=== PATIENT | female | born 1980 | race Caucasian/White ===

== ENCOUNTER 2018-05-18 02:51 | Emergency (ER) | payer MEDICAID, OTHER ==
[~2018-05-18] VITALS: Ht 170.2 cm; Wt 90.7 kg
--- NOTE | 2018-05-18 02:57 | ED Fall/Injury ---
General Chief Complaint: Trauma-Non Activation Stated Complaint: FALL History of Present Illness Date Seen by Provider: May 18, 2018 Time Seen by Provider: 02:42 Occurred: just prior to arrival Severity: moderate Injuries/Pain Location: lower extremity Context: fainted, lightheaded, slipped Loss of Consciousness: no loss of consciousness Modifying Factors: Improves With Movement Associated Symptoms (Fall): Denies Symptoms 36-year-old female presents by EMS after a mechanical fall injuring the right foot and left lateral ankle. Denies any other injuries. Has constant nonradiating sore moderate severity pain worse with movement or direct palpation. No weakness numbness or tingling. No other injuries. Allergies and Home Medications Allergies Coded Allergies: No Known Drug Allergies (Unverified , 05/18/18) Home Medications Hydrocodone Bit/Acetaminophen 1 Tab Tab, 1-2 EACH PO Q6H PRN for PAIN-MODERATE Prescribed by: ANKIT CARTER on 05/18/18 0535 Patient Home Medication List Home Medication List Reviewed: Yes Review of Systems Review of Systems Constitutional: no symptoms reported Eyes: No Symptoms Reported Ears, Nose, Mouth, Throat: no symptoms reported Respiratory: no symptoms reported Cardiovascular: no symptoms reported Gastrointestinal: no symptoms reported Genitourinary: no symptoms reported : No Musculoskeletal: see HPI Skin: no symptoms reported Psychiatric/Neurological: No Symptoms Reported All Other Systems Reviewed Negative Unless Noted: Yes Physical Exam Vital Signs Vital Signs - First Documented 05/18/18 05/18/18 02:53 07:38 Temp 97.4 Pulse 100 Resp 20 B/P (MAP) 95/65 (75) Pulse Ox 98 O2 Delivery Room Air Capillary Refill : Height, Weight, BMI Height: '" Weight: lbs. oz. kg; BMI Method: General Appearance: no apparent distress HEENT: normal ENT inspection Neck: supple Cardiovascular: normal peripheral pulses, regular rate, rhythm Respiratory: lungs clear Gastrointestinal: non tender, soft Extremities: other (mild swelling and ecchymosis over the right dorsal mid foot , mild tenderness over the left posterior lateral malleolus) Neurologic/Psychiatric: no motor/sensory deficits, alert, oriented x 3 Progress/Results/Core Measures Results/Orders My Orders Orders - ANKIT CARTER DO Foot 2 View Right (05/18/18 02:58) Ankle 3 View Left (05/18/18 02:58) Oxycodone Immediate Rel Tablet (Oxyir Ta (05/18/18 02:59) Ketorolac Injection (Toradol Injection) (05/18/18 04:50) Ketorolac Injection (Toradol Injection) (05/18/18 05:25) Vital Signs/I&O 05/18/18 05/18/18 05/18/18 02:53 02:56 07:38 Temp 97.4 97.4 97.4 Pulse 100 100 69 Resp 20 20 20 B/P (MAP) 95/65 (75) 95/65 (75) 122/85 (97) Pulse Ox 98 98 99 O2 Delivery Room Air Progress Progress Note : Progress Note My review of patient's x-rays reveal a left distal fibular avulsion fracture and a possible right tarsal fracture. I applied a plaster wide posterior ankle mold for the left ankle and we tried a postop boot on the right side however patient is unable to bear weight on either side. We do not have wheelchairs in this facility, I am notified by staff that in the morning there is a medical supply company that should be able to supply a wheelchair. Patient also thinks that she might be able to get one from her family member. She does have several family members that can help her at home. Once we get a wheelchair we can discharge the patient with a prescription for analgesics and referral to orthopedics. She has no recent controlled substance prescriptions in [facility] website. Discussed risks, benefits, alternatives of opioid prescribing the patient. Care signed out to oncoming provider at 6am. Departure Impression Primary Impression: Closed left fibular fracture Additional Impression: Fracture of tarsal bone of right foot Disposition: 01 HOME, SELF-CARE Condition: Stable Departure-Patient Inst. Referrals: OLINDA MAYS MD Patient Instructions: Foot Fracture (DC) Scripts Hydrocodone Bit/Acetaminophen (Hydrocodone/Acetaminophen 5/325mg Tablet) 1 Tab Tab 1-2 EACH PO Q6H PRN for PAIN-MODERATE MDD 10, #20 TAB 0 Refills Prov: ANKIT CARTER DO 05/18/18 ANKIT CARTER DO May 18, 2018 02:57
--- OUTSIDE RECORDS SUMMARY | 2018-05-18 02:59 | XMS REPORT ---
Author Author MAYELA MENJIVAR Organization [facility] Address [address] [place] [address] Care Team Providers Care Residence Life Director Name Role Phone TIARAERENA Unavailable PROBLEMS Unknown Problems ALLERGIES No Known Allergies ENCOUNTERS Encounter Location Date Diagnosis [facility] [address] [facility] [id number] [place] [id number] May, Encounter for dental examination Z01.20 [facility] [id number] [place] [phone] Jun, 2014 [facility] [id number] [place] [phone] Jun, [facility] [id number] [place] [phone] Feb, [facility] [id number] [place] [phone] Feb, IMMUNIZATIONS No Known Immunizations SOCIAL HISTORY Never Assessed REASON FOR VISIT Prophy/RINA PLAN OF CARE Activity Details Follow Up First Available Reason:Restorative VITAL SIGNS Blood pressure systolic 108 mmHg 2017-05-30 Blood pressure diastolic 68 mmHg 2017-05-30 MEDICATIONS Medication Instructions Dosage Frequency Start Date End Date Duration Status Harrison 5-325 mg take 1 tablet by Oral route every 6 hours as needed for pain Feb, Not-Taking RESULTS No Results PROCEDURES Procedure Date Ordered Result Body Site COMP ORAL EVALUATION - NEW/EST PT May 30, 2017 INTRAORL-PERIAPICAL 1 FILM 12077 May 30, 2017 PANORAMIC FILM SEE ALSO CODE 06936 May 30, 2017 BITEWINGS - FOUR FILMS May 30, 2017 PROPHYLAXIS - ADULT May 30, 2017 INTRAORL-PERIAPICAL EA ADD FILM May 30, 2017 INTRAORL-PERIAPICAL EA ADD FILM May 30, 2017 INTRAORL-PERIAPICAL EA ADD FILM May 30, 2017 INTRAORL-PERIAPICAL EA ADD FILM May 30, 2017 INSTRUCTIONS MEDICATIONS ADMINISTERED No Known Medications MEDICAL (GENERAL) HISTORY Type Description Date Surgical History c-sections Surgical History Gall Lbadder 2007 Surgical History Tubal ligation 2002 Surgical History Appendix/small intestine 2003 Hospitalization History Hospitalization for surgery only
--- NOTE | 2018-05-18 03:26 | NUR ---
Pt. reported she was at work not at home.
--- NOTE | 2018-05-18 04:26 | NUR ---
Doctor Woody placed an OCL on the left ankle. A boot placed on the right foot. Attempted to stand the patient and she was unable to put weight on the right foot. Doctor soler.
[2018-05-18] MEDS ORDERED: KETOROLAC 60 MG/2 ML VIAL IM STA (04:50)
[2018-05-18] MEDS ORDERED: KETOROLAC 30 MG/ML VIAL ONE (05:25)
[2018-05-18] MEDS ORDERED: ACHD5005 PO (05:35)
--- NOTE | 2018-05-18 05:36 | NUR ---
Pt. is here and will attempt to get a wheelchair for the patient.
--- NOTE | 2018-05-18 06:32 | NUR ---
Pt. sleeping at this time.
--- NOTE | 2018-05-18 06:55 | Diagnostic Imaging Report ---
INDICATION: Right foot pain, injury. COMPARISON: None. FINDINGS: 2 views of right foot demonstrate no fracture or dislocation. Articular surfaces are normal. No foreign body is seen. IMPRESSION: No fracture or dislocation. Dictated by: Dictated on workstation # [id number]
--- NOTE | 2018-05-18 06:55 | NUR ---
Report from Roxanne REAVES.
--- NOTE | 2018-05-18 07:00 | NUR ---
Pt awaiting discharge as spouse trying to find a loaner WC before a DME Co contacted. Pt is non weight bearing.
--- NOTE | 2018-05-18 07:06 | Diagnostic Imaging Report ---
INDICATION: Left ankle injury. COMPARISON: None. FINDINGS: Three views of left ankle demonstrate a nondisplaced chip fracture of the distal fibula. There is some mild soft tissue swelling. The ankle mortise is intact. IMPRESSION: Nondisplaced chip fracture of distal fibula. Dictated by: Dictated on workstation # [id number]
--- NOTE | 2018-05-18 07:35 | NUR ---
Pt's spouse arriving with a WC soon as update.
[2018-05-18 07:38] VITALS: BP 122/85
--- NOTE | 2018-05-18 07:38 | NUR ---
Pt discharged at this time, verbalized understanding of instructions to Nasrin REAVES.
[2018-05-18] MEDS ORDERED: HYDROcodone/APAP 5 MG/325 MG (LORTAB) TAB PO ONE (07:45)
== END 2018-05-18 07:38 | disposition home or self-care (01) ==
LOC: ER FS 02:56
DX: S82.832A Other fracture of upper and lower end of left fibula, initial encounter for closed fracture (principal); W01.0XXA Fall on same level from slipping, tripping and stumbling without subsequent striking against object, initial encounter
CPT/HCPCS: 73610; 73620

== ENCOUNTER → 2018-07-06 | Outpatient (CLI) | payer MEDICAID ==
[~2018-07-06] MED LIST: ACHD5005 PO
--- NOTE | 2018-07-06 10:50 | Diagnostic Imaging Report ---
PROCEDURE: MRI right lower extremity without contrast. TECHNIQUE: Multiplanar, multisequence non contrast-enhanced MRI of the right foot was accomplished. INDICATION: Fall in May 2017, pain at the lateral mid foot and ankle. Swelling. COMPARISON: Radiographs from 05/18/2018 FINDINGS: There is moderate bone marrow edema at the base of the fifth metatarsal, with a linear hypointensity consistent with a nondisplaced avulsion fracture. No other fractures are seen in the foot. Alignment otherwise appears normal. The Lisfranc ligament is intact. There is mild dorsal soft tissue edema. No muscular atrophy is seen. No fluid collections are identified. The imaged flexor and extensor tendons appear intact. There is a bipartite medial hallux sesamoid. IMPRESSION: 1. Nondisplaced avulsion fracture at the base of the right fifth metatarsal. 2. Mild dorsal soft tissue edema. Dictated by: Dictated on workstation # [id number]
== END ==
LOC: RAD 09:41
PROVIDERS: ATTEND Orthopaedic Surgery
DX: S92.354A Nondisplaced fracture of fifth metatarsal bone, right foot, initial encounter for closed fracture (principal); W19.XXXA Unspecified fall, initial encounter

== ENCOUNTER 2020-12-22 18:34 | Emergency (ER) | payer SELFPAY ==
[~2020-12-22] VITALS: Ht 170.2 cm; Wt 95.3 kg
--- NOTE | 2020-12-22 19:06 | ED Chest Pain ---
General Chief Complaint: Head/Cervical Problems Stated Complaint: CHEST HEAVINESS,HEADACHE,SOB Nursing Triage Note: Patient reports she woke with a headache this morning, states it has become progressively worse throughout the day. She also reports chest heaviness, shortness of breath, and nausea. Source: patient Exam Limitations: no limitations (OBED SOLORIO MD) History of Present Illness Date Seen by Provider: Dec 22, 2020 Time Seen by Provider: 18:35 Initial Comments This 40-year-old woman presents to the emergency room with complaints of flulike symptoms including shortness of breath, mild cough, chest heaviness, intense headache, and mild nausea. Chest discomfort is slightly worse with inspiration. She is afebrile. Symptoms started this morning upon awaking. She works in [employer] and she has not been COVID vaccinated. She denies any heart or lung health problems. She has not taken any medications for her symptoms today. She exhibits no tachycardia and O2 sat is 100%. No leg pain, swelling or tenderness. She no longer smokes. (OBED SOLORIO MD) Allergies and Home Medications Allergies Coded Allergies: No Known Drug Allergies (Unverified , 05/18/18) Patient Home Medication List Home Medication List Reviewed: Yes (OBED SOLORIO MD) Hydrocodone Bit/Acetaminophen (Lortab 5 Mg Tablet) 1 Tab Tab, 1-2 EACH PO Q6H PRN for PAIN-MODERATE Prescribed by: ANKIT CARTER on 05/18/18 0535 Review of Systems Review of Systems Constitutional: no symptoms reported EENTM: See HPI, Other (right sided headache) Respiratory: See HPI Cardiovascular: See HPI Gastrointestinal: See HPI Genitourinary: No Symptoms Reported Musculoskeletal: no symptoms reported Skin: no symptoms reported Psychiatric/Neurological: See HPI Endocrine: No Symptoms Reported Hematologic/Lymphatic: No Symptoms Reported (OBED SOLORIO MD) Past Dgldrfk-Zknjfc-Iezuvm Hx Patient Social History Tobacco Use?: No Smoking Status: Former Smoker Substance use?: No Alcohol Use?: No Pt feels they are or have been: No (OBED SOLORIO MD) Past Medical History Surgeries: Yes Abdominal (small bowel perphoration after tubal ligation requiring surgical intervention.), Appendectomy, Gallbladder, Hysterectomy, Tubal Ligation Respiratory: No Cardiac: No Neurological: Yes Headaches /Migraines : No Reproductive Disorders: No ANODIZER History: Hysterectomy Genitourinary: No Gastrointestinal: No Musculoskeletal: No Endocrine: No HEENT: No Cancer: No Psychosocial: No Integumentary: No Blood Disorders: No (OBED SOLORIO MD) Physical Exam Vital Signs Vital Signs - First Documented 12/22/20 18:35 Temp 35.0 Pulse 68 Resp 16 B/P (MAP) 127/76 (93) Pulse Ox 99 O2 Delivery Room Air (ROVENSTINE,ISACC [facility]) Vital Signs Capillary Refill : Less Than 3 Seconds (OBED SOLORIO MD) Height, Weight, BMI Height: 5'7.00" Weight: 200lbs. oz. 90.086270ic; 32.00 BMI Method:Stated General Appearance: WD/WN, Mild Distress HEENT: PERRL/EOMI, Normal ENT Inspection Neck: Normal Inspection Respiratory: Lungs Clear, Normal Breath Sounds, No Accessory Muscle Use Cardiovascular: Regular Rate, Rhythm, No Edema, No Murmur Gastrointestinal: Non Tender, Soft; No Distended Extremity: Normal Inspection, Non Tender, No Pedal Edema Neurologic/Psychiatric: Alert, Oriented x3, No Motor/Sensory Deficits, disaster recovery specialist II- XII Norm as Tested, Other (mildly anxious) Skin: Normal Color, Warm/Dry (OBED SOLORIO MD) Progress/Results/Core Measures Results/Orders Lab Results Laboratory Tests Test 12/22/20 18:50 12/22/20 19:10 Range/Units SARS-CoV-2 RNA (RT-PCR) Not Detected Not Detecte White Blood Count 4.4 4.3-11.0 10^3/uL Red Blood Count 4.53 3.80-5.11 10^6/uL Hemoglobin 13.6 11.5-16.0 g/dL Hematocrit 40 35-52 % Mean Corpuscular Volume 87 80-99 fL Mean Corpuscular Hemoglobin 30 25-34 pg Mean Corpuscular Hemoglobin Concent 34 32-36 g/dL Red Cell Distribution Width 11.9 10.0-14.5 % Platelet Count 196 130-400 10^3/uL Mean Platelet Volume 9.3 9.0-12.2 fL Immature Granulocyte % (Auto) 0 % Neutrophils (%) (Auto) 53 42-75 % Lymphocytes (%) (Auto) 33 12-44 % Monocytes (%) (Auto) 11 0-12 % Eosinophils (%) (Auto) 3 0-10 % Basophils (%) (Auto) 1 0-10 % Neutrophils # (Auto) 2.3 1.8-7.8 X 10^3 Lymphocytes # (Auto) 1.5 1.0-4.0 X 10^3 Monocytes # (Auto) 0.5 0.0-1.0 X 10^3 Eosinophils # (Auto) 0.1 0.0-0.3 10^3/uL Basophils # (Auto) 0.0 0.0-0.1 10^3/uL Immature Granulocyte # (Auto) 0.0 0.0-0.1 10^3/uL Prothrombin Time 12.8 12.2-14.7 SEC INR Comment 0.9 0.8-1.4 Activated Partial Thromboplast Time 29 24-35 SEC Sodium Level 140 135-145 MMOL/L Potassium Level 3.9 3.6-5.0 MMOL/L Chloride Level 102 98-107 MMOL/L Carbon Dioxide Level 28 21-32 MMOL/L Anion Gap 10 5-14 MMOL/L Blood Urea Nitrogen 13 7-18 MG/DL Creatinine 0.56 L 0.60-1.30 MG/DL Estimat Glomerular Filtration Rate 121 BUN/Creatinine Ratio 23 Glucose Level 113 H 70-105 MG/DL Calcium Level 9.2 8.5-10.1 MG/DL Corrected Calcium 8.5-10.1 MG/DL Magnesium Level 2.1 1.6-2.4 MG/DL Total Bilirubin 0.4 0.1-1.0 MG/DL Aspartate Amino Transf (AST/SGOT) 24 5-34 U/L Alanine Aminotransferase (ALT/SGPT) 30 0-55 U/L Alkaline Phosphatase 71 40-136 U/L Myoglobin < 21.0 10.0-92.0 NG/ML Troponin I < 0.30 <0.30 NG/ML C-Reactive Protein < 0.30 <0.50 MG/DL Total Protein 7.2 6.4-8.2 GM/DL Albumin 4.6 H 3.2-4.5 GM/DL (ROVENSTINE,ISACC L DO) Medications Given in ED Current Medications Medications Dose Ordered Sig/Kathy Route Start Time Stop Time Status Last Admin Dose Admin Ketorolac Tromethamine 30 mg ONCE ONCE IVP 12/22/20 19:30 12/22/20 19:31 DC 12/22/20 20:00 30 MG Ondansetron HCl 4 mg ONCE ONCE IVP 12/22/20 19:30 12/22/20 19:31 DC 12/22/20 19:59 4 MG (ISACC HOBSON DO) Vital Signs/I&O 12/22/20 12/22/20 12/22/20 18:35 20:35 20:51 Temp 35.0 35.0 Pulse 68 68 Resp 16 16 B/P (MAP) 127/76 (93) 127/76 Pulse Ox 99 99 99 O2 Delivery Room Air Room Air Room Air (ISACC HOBSON DO) Blood Pressure Mean: 93 Progress Progress Note : Time: 19:20 Progress Note Patient was seen and examined. Chest pain and flu/COVID workups are pending. Symptoms are being treated with Zofran and Toradol. Care is being transitioned to Dr. Hobson at this time. (OBED SOLORIO MD) Progress Note : Progress Note Patient seen and examined after checkout with Dr. Olvera, reviewed labs and chest x-ray which were normal. Patient with uneventful ER stay, vital signs stable, no acute distress and normal exam. Reassurance given, advised symptomatic care using [id number] treatments and follow-up if not im proving or worse. Also advised to self quarantine until she has her Covid results. Patient agrees and understands (ISACC HOBSON DO) Initial ECG Impression Date: Dec 22, 2020 Initial ECG Impression Time: 19:20 Initial ECG Rate: 65 Initial ECG Rhythm: Normal Sinus Initial ECG Intervals: Normal Initial ECG Impression: Normal Initial ECG Comparisson: No Previous ECG Available (ISACC HOBSON DO) Diagnostic Imaging Diagonstic Imaging: Xray Plain Films/CT/US/NM/MRI: chest Comments NAME: ELIAN [facility] REC#: [id number] PT STATUS: REG ER : 1980 PHYSICIAN: OBED SOLORIO MD ADMIT DATE: 12/22/20/ER FS Draft Date of Exam:12/22/20 CHEST 1 VIEW AP/PA ONLY INDICATION: chest heaviness. Shortness of air. COMPARISON: None FINDINGS: Single frontal view of the chest demonstrates normal heart size and pulmonary vascularity. The lungs are well aerated and clear. No large pleural effusion or pneumothorax is seen. The visualized osseous structures show no acute abnormalities. IMPRESSION: 1. No acute cardiopulmonary process. Dictated on workstation # [id number] Dict: 12/22/201917 Trans: 12/22/201920 [id number] Interpreted by: MARJORIE BALL MD (OBED SOLORIO MD) Departure Impression Primary Impression: Headache Qualified Codes: R51.9 - Headache, unspecified Additional Impression: Viral illness Disposition: HOME, SELF-CARE Condition: Stable Departure-Patient Inst. Decision time for Depature: 20:19 (ISACC HOBSON DO) Referrals: [facility] [place] (PCP) Primary Care Physician RAIZA KAM APRN (Family) Primary Care Physician Patient Instructions: Headache, Adult (DC), Viral Syndrome (DC) Add. Discharge Instructions: Quarantine at home until you get results of your covid testing. Otherwise, treat your symptoms with Over the counter cough and cold medication as needed. See your Doctor in 1 week if not improving, return to the ER sooner if significantly worse. All discharge instructions reviewed with patient and/or family. Voiced understanding. OBED SOLORIO MD Dec 22, 2020 19:05 ISACC HOBSON DO Dec 22, 2020 19:40
--- NOTE | 2020-12-22 19:22 | Diagnostic Imaging Report ---
INDICATION: chest heaviness. Shortness of air. COMPARISON: None FINDINGS: Single frontal view of the chest demonstrates normal heart size and pulmonary vascularity. The lungs are well aerated and clear. No large pleural effusion or pneumothorax is seen. The visualized osseous structures show no acute abnormalities. IMPRESSION: 1. No acute cardiopulmonary process. Dictated by: Dictated on workstation # [id number]
[2020-12-22] MEDS ORDERED: KETOROLAC 30 MG/ML VIAL IVP ONE (19:30)
[2020-12-22] MEDS ORDERED: ONDANSETRON 4 MG/2 ML (SDV) Z0FRAN IVP ONE (19:30)
[2020-12-22 19:32] LABS: BASOPHILS % (AUTO) 1 % (0-10); EOSINOPHILS # (AUTO) 0.1 10^3/uL (0.0-0.3); EOSINOPHILS % (AUTO) 3 % (0-10); HEMATOCRIT 40 % (35-52); HEMOGLOBIN 13.6 g/dL (11.5-16.0); LYMPHOCYTES # (AUTO) 1.5 X 10^3 (1.0-4.0); LYMPHOCYTES % (AUTO) 33 % (12-44); MEAN CORPUSCULAR HEMOGLOBIN 30 pg (25-34); MEAN CORPUSCULAR HGB CONC 34 g/dL (32-36); MEAN CORPUSCULAR VOLUME 87 fL (80-99); MEAN PLATELET VOLUME 9.3 fL (9.0-12.2); MONOCYTES # (AUTO) 0.5 X 10^3 (0.0-1.0); MONOCYTES % (AUTO) 11 % (0-12); NEUTROPHILS # (AUTO) 2.3 X 10^3 (1.8-7.8); NEUTROPHILS % (AUTO) 53 % (42-75); PLATELET COUNT 196 10^3/uL (130-400); WHITE BLOOD COUNT 4.4 10^3/uL (4.3-11.0)
[2020-12-22 19:37] LABS: INR 0.9 (0.8-1.4); PROTHROMBIN TIME PATIENT 12.8 SEC (12.2-14.7)
[2020-12-22 19:48] LABS: ALANINE AMINOTRANSFERASE 30 U/L (0-55); ALBUMIN 4.6 GM/DL (3.2-4.5); ALKALINE PHOSPHATASE 71 U/L (40-136); BILIRUBIN,TOTAL 0.4 MG/DL (0.1-1.0); BUN/CREATININE RATIO 23; CALCIUM 9.2 MG/DL (8.5-10.1); CARBON DIOXIDE 28 MMOL/L (21-32); CHLORIDE 102 MMOL/L (98-107); CREATININE SERUM 0.56 MG/DL (0.60-1.30); GFR ESTIMATED 121; GLUCOSE 113 MG/DL (70-105); MAGNESIUM 2.1 MG/DL (1.6-2.4); POTASSIUM 3.9 MMOL/L (3.6-5.0); SODIUM 140 MMOL/L (135-145); TOTAL PROTEIN 7.2 GM/DL (6.4-8.2)
[2020-12-22 20:35] VITALS: BP 127/76
== END 2020-12-22 20:35 | disposition home or self-care (01) ==
LOC: EDUNIT# 18:34 → ER FS 18:35
DX: R51.9 Headache, unspecified (principal); B34.9 Viral infection, unspecified; Z20.822 Contact with and (suspected) exposure to COVID-19; Z87.891 Personal history of nicotine dependence
CPT/HCPCS: 36415; 71045; 80053; 83735; 83874; 84484; 85025; 85610; 85730; 86141; 87636; 93005; 93041

== ENCOUNTER 2021-08-10 12:53 | Emergency (ER) | payer SELFPAY ==
[2021-08-10] MEDS ORDERED: KETOROLAC 30 MG/ML VIAL IVP ONE (13:45)
[2021-08-10] MEDS ORDERED: diphenhydrAMINE 50 MG/ML INJ (BENADRYL) IVP ONE (13:45)
[2021-08-10] MEDS ORDERED: ONDANSETRON 4 MG/2 ML (SDV) Z0FRAN IVP ONE (13:45)
--- NOTE | 2021-08-10 13:49 | ED Headache ---
General Chief Complaint: Head/Cervical Problems Stated Complaint: HEADACHE; NAUSEA History of Present Illness Date Seen by Provider: Aug 10, 2021 Time Seen by Provider: 13:09 Initial Comments 41-year-old female with PMH of migraines, is here by EMS with complaints of severe migraine which began today morning. Patient states that normally she uses essential oils to help take away her headache and if that does not work she takes something [id number]. Today she has not taken any medication but she states that her essential oils did not work. Patient has a right-sided headache today with associated photophobia and nausea. Patient reports aura right before the headache hit. Denies head injury, trauma, falls, LOC, seizures, neck pain or neck stiffness, fever. Patient has not had breakfast today and she has not been drinking much water lately. Allergies and Home Medications Allergies Coded Allergies: No Known Drug Allergies (Unverified , 05/18/18) Patient Home Medication List Home Medication List Reviewed: Yes Hydrocodone Bit/Acetaminophen (Lortab 5 Mg Tablet) 1 Tab Tab, 1-2 EACH PO Q6H PRN for PAIN-MODERATE Prescribed by: ANKIT CARTER on 05/18/18 0535 Review of Systems Review of Systems Constitutional: no symptoms reported Eyes: Photophobia Ears, Nose, Mouth, Throat: no symptoms reported Respiratory: no symptoms reported Cardiovascular: no symptoms reported Gastrointestinal: no symptoms reported Genitourinary: no symptoms reported Musculoskeletal: no symptoms reported Skin: no symptoms reported Psychiatric/Neurological: Headache Past Inkvcna-Vrlcff-Ocywmn Hx Past Medical History Surgeries: Yes Abdominal, Appendectomy, Gallbladder, Hysterectomy, Tubal Ligation Respiratory: No Cardiac: No Neurological: Yes Headaches /Migraines Reproductive Disorders: No 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 oz. 90.330044za; 32.00 BMI Method:Stated General Appearance: WD/WN, mild distress HEENT: PERRL/EOMI, TMs normal Neck: non-tender, full range of motion, supple, normal inspection Cardiovascular: regular rate, rhythm Respiratory: chest non-tender, lungs clear Gastrointestinal: non tender, soft Back: normal inspection, no vertebral tenderness Psychiatric: alert, oriented x 3 Crainal Nerves: normal hearing, normal speech, PERRL Coordination/Gait: normal gait Motor/Sensory: no motor deficit, no sensory deficit Skin: normal color, warm/dry Progress/Results/Core Measures Results/Orders Lab Results Laboratory Tests Test 08/10/21 14:42 Range/Units Urine Color YELLOW Urine Clarity CLEAR Urine pH 7.5 5-9 Urine Specific [place] 1.020 1.016-1.022 Urine Protein NEGATIVE NEGATIVE Urine Glucose (UA) NEGATIVE NEGATIVE Urine Ketones NEGATIVE NEGATIVE Urine Nitrite NEGATIVE NEGATIVE Urine Bilirubin NEGATIVE NEGATIVE Urine Urobilinogen 0.2 < = 1.0 MG/DL Urine Leukocyte Esterase NEGATIVE NEGATIVE Urine RBC (Auto) NEGATIVE NEGATIVE Urine RBC NONE /HPF Urine WBC 2-5 /HPF Urine Squamous Epithelial Cells 5-10 /HPF Urine Crystals NONE /LPF Urine Bacteria LARGE H /HPF Urine Casts NONE /LPF Urine Mucus MODERATE H /LPF Urine Culture Indicated YES Urine Opiates Screen NEGATIVE NEGATIVE Urine Oxycodone Screen NEGATIVE NEGATIVE Urine Methadone Screen NEGATIVE NEGATIVE Urine Propoxyphene Screen NEGATIVE NEGATIVE Urine Barbiturates Screen NEGATIVE NEGATIVE Ur Tricyclic Antidepressants Screen NEGATIVE NEGATIVE Urine Phencyclidine Screen NEGATIVE NEGATIVE Urine Amphetamines Screen NEGATIVE NEGATIVE Urine Methamphetamines Screen NEGATIVE NEGATIVE Urine Benzodiazepines Screen NEGATIVE NEGATIVE Urine Cocaine Screen NEGATIVE NEGATIVE Urine Cannabinoids Screen POSITIVE H NEGATIVE My Orders Orders - MINI BONE MD Ketorolac Injection (Toradol Injection) (08/10/21 13:45) Diphenhydramine Injection (Benadryl Inje (08/10/21 13:45) Ondansetron Injection (Zofran Injectio (08/10/21 13:45) Ct Head Wo (08/10/21 14:14) Metoclopramide Injection (Reglan Injecti (08/10/21 14:14) Drug Screen Stat (Urine) (08/10/21 14:14) Ua Culture If Indicated (08/10/21 14:14) Oxycodone/Apap 5/325mg Tablet (Percocet (08/10/21 14:44) Urine Culture (08/10/21 14:42) Medications Given in ED Current Medications Medications Dose Ordered Sig/Kathy Route Start Time Stop Time Status Last Admin Dose Admin Diphenhydramine HCl 25 mg ONCE ONCE IVP 08/10/21 13:45 08/10/21 13:46 DC 08/10/21 13:45 25 MG Ketorolac Tromethamine 15 mg ONCE ONCE IVP 08/10/21 13:45 08/10/21 13:46 DC 08/10/21 13:45 15 MG Ondansetron HCl 4 mg ONCE ONCE IVP 08/10/21 13:45 08/10/21 13:46 DC 08/10/21 13:45 4 MG Vital Signs/I&O 08/10/21 14:12 Temp 36.7 Pulse 66 Resp 20 B/P (MAP) 121/78 (92) Pulse Ox 96 O2 Delivery Room Air Progress Progress Note : Progress Note 1. MIGRAINE:MARIJUANA ABUSE - TOradol 15/ Zofran 4mg/ Benadryl 25mg iv STAT/NS IVF bolus - Added Reglan 10mg iv, then one tab Percocet - CT HEAD: unremarkable - BP was normal in ER - Pt improved with treatment - Rebound effect of marijuana causing headaches explained. Stop marijuana use. -Adequate hydration advised - Follow up with PCP within the next 7 days -The patient was seen in the ED, and treated appropriately to presentation at a specific point in time. Patient is informed that there is a possibility that disease and illness can evolve and change in acuity rapidly or slowly after patient is discharged from the ER. Precautionary advice given to the patient for immediate return to ER if symptoms worsen or do not resolve, and to seek emergency care sooner rather than later. Pt also advised on the importance of PCP follow up and compliance with management and follow up plan with PCP and/or specialist, as this is part of the management plan. Pt verbally expressed understanding. 1. RIGHT MAXILLARY SINUSITIS: - Azithro 500mg prescription oral given for 3 days - confirmed on CT and pt states she has been having right sided facial tenderness and nasal congestion Diagnostic Imaging Diagonstic Imaging: CT Plain Films/CT/US/NM/MRI: head Comments [facility]. [place], [place] NAME: CJELIAN Corona [facility] REC#: [id number] PT STATUS: REG ER : 1980 PHYSICIAN: MINI BONE MD ADMIT DATE: 08/10/21/ER FS Draft Date of Exam:08/10/21 CT HEAD WO PROCEDURE: CT head without contrast. TECHNIQUE: Multiple contiguous axial images were obtained through the brain without the use of intravenous contrast. Auto Exposure Controls were utilized during the CT exam to meet ALARA standards for radiation dose reduction. INDICATION: Migraine headache. COMPARISON: None. FINDINGS: No intracranial hemorrhage, mass effect, hydrocephalus, or extra-axial fluid collections. No CT evidence of a territorial infarction. Osseous structures are intact. Small right mastoid effusion. Visualized paranasal sinuses and mastoids are clear. IMPRESSION: 1. No acute intracranial CT findings. 2. Small nonspecific right mastoid effusion. Dictated on workstation # [id number] Dict: 08/10/21 1432 Trans: 08/10/21 1435 [id number] Interpreted by: DAVIS BUCIO MD Electronically signed by: Departure Impression Primary Impression: Migraine Qualified Codes: G43.909 - Migraine, unspecified, not intractable, without status migrainosus Additional Impressions: Marijuana abuse Maxillary sinusitis Qualified Codes: J32.0 - Chronic maxillary sinusitis Disposition: HOME, SELF-CARE Condition: Improved Departure-Patient Inst. Referrals: [facility] (PCP) Primary Care Physician RAIZA KAM APRN (Family) Primary Care Physician Patient Instructions: Migraines (DC), Marijuana Use and Addiction (DC), Sinusitis in Adults Add. Discharge Instructions: - Rebound effect of marijuana causing headaches explained. Stop marijuana use. -Adequate hydration advised - Follow up with PCP within the next 7 days All discharge instructions reviewed with patient and/or family. Voiced understanding. Scripts Azithromycin (Azithromycin) 500 Mg Tablet 500 MG PO DAILY for 3 Days, #3 TAB Prov: MINI BONE MD 08/10/21 Ondansetron (Ondansetron Odt) 4 Mg Tab.rapdis 4 MG PO Q6H PRN for NAUSEA/VOMITING for 4 Days, #16 TAB Prov: MINI BONE MD 08/10/21 MINI BONE MD Aug 10, 2021 13:49
[2021-08-10] MEDS ORDERED: METOCLOPRAMIDE INJ 10 MG/2 ML (REGLAN) IVP STA (14:14)
--- NOTE | 2021-08-10 14:35 | Diagnostic Imaging Report ---
PROCEDURE: CT head without contrast. TECHNIQUE: Multiple contiguous axial images were obtained through the brain without the use of intravenous contrast. Auto Exposure Controls were utilized during the CT exam to meet ALARA standards for radiation dose reduction. INDICATION: Migraine headache. COMPARISON: None. FINDINGS: No intracranial hemorrhage, mass effect, hydrocephalus, or extra-axial fluid collections. No CT evidence of a territorial infarction. Osseous structures are intact. Small right mastoid effusion. Visualized paranasal sinuses and mastoids are clear. IMPRESSION: 1. No acute intracranial CT findings. 2. Small nonspecific right mastoid effusion. Dictated by: Dictated on workstation # [id number]
[2021-08-10] MEDS ORDERED: oxyCODONE/APAP 5/325MG (PERCOCET 5) TABLET PO STA (14:44)
[2021-08-10 14:54] LABS: BILIRUBIN,URINE NEGATIVE (NEGATIVE); CLARITY,URINE CLEAR; COLOR,URINE YELLOW; GLUCOSE, URINE (UA) NEGATIVE (NEGATIVE); KETONES,URINE NEGATIVE (NEGATIVE); LEUKOCYTE ESTERASE ,URINE NEGATIVE (NEGATIVE); NITRITE,URINE NEGATIVE (NEGATIVE); PH,URINE 7.5 (5-9); PROTEIN,URINE NEGATIVE (NEGATIVE)
[2021-08-10 15:10] LABS: AMPHETAMINE SCREEN, URINE NEGATIVE (NEGATIVE); BARBITURATE SCREEN URINE NEGATIVE (NEGATIVE); BENZODIAZEPINES SCREEN URINE NEGATIVE (NEGATIVE); CANNABINOID SCREEN, URINE POSITIVE (NEGATIVE); COCAINE SCREEN URINE NEGATIVE (NEGATIVE); METHADONE STAT NEGATIVE (NEGATIVE); OPIATE SCREEN URINE NEGATIVE (NEGATIVE); OXYCODONE STAT NEGATIVE (NEGATIVE); PROPOXYPHENE STAT NEGATIVE (NEGATIVE); TRICYCLIC ANTIDEPRESSANTS SCRE NEGATIVE (NEGATIVE)
[2021-08-10 15:15] LABS: BACTERIA,URINE LARGE /HPF
[2021-08-10] MEDS ORDERED: ONDA4TAB11 PO (15:39)
[2021-08-10] MEDS ORDERED: AZIT500T9 PO (15:39)
[2021-08-10 16:03] VITALS: BP 110/80
== END 2021-08-10 16:03 | disposition home or self-care (01) ==
LOC: EDUNIT# 12:53 → ER FS 12:55
DX: G43.909 Migraine, unspecified, not intractable, without status migrainosus (principal); F12.10 Cannabis abuse, uncomplicated; J32.0 Chronic maxillary sinusitis
CPT/HCPCS: 70450; 80306; 81000; 87088